=== PATIENT | female | born 1955 | race Caucasian/White ===

== ENCOUNTER 2016-07-10 11:04 | Emergency (ER) | payer BC ==
[2016-07-10 11:55] LABS: HEMOGLOBIN 11.5 gm/dl (12.3-15.3); RED BLOOD COUNT 4.46 M/UL (4.00-5.10); WHITE BLOOD COUNT 4.8 K/UL (4.5-11.0)
[2016-07-10 12:13] LABS: BUN/CREATININE RATIO 30 (0-10)
== END 2016-07-10 16:34 | disposition home or self-care (01) ==
LOC: ER1 11:04
PROVIDERS: Emergency Medicine
DX: R10.31 Right lower quadrant pain (principal); D73.89 Other diseases of spleen; I10 Essential (primary) hypertension; C73 Malignant neoplasm of thyroid gland; Z88.2 Allergy status to sulfonamides; Z90.710 Acquired absence of both cervix and uterus; Z88.6 Allergy status to analgesic agent; Z90.89 Acquired absence of other organs
CPT/HCPCS: 36415; 80053; 81001; 83690; 85025; 96361; 96374; 99284; J2405; J7050; Q9962

== ENCOUNTER → 2016-09-05 | Outpatient (CLI) | payer BC | LOC: US 09:35 | DX: R10.11 Right upper quadrant pain (principal); Z90.49 Acquired absence of other specified parts of digestive tract | CPT/HCPCS: 76705 ==

== ENCOUNTER → 2020-07-02 | Outpatient (CLI) | payer BC ==
[~2020-07-02] MED LIST: BENICAR20 MG PO; NEXIUM40 MG PO; OMNICEF 300 MG300 MG PO; SYNTHROID150 MCG PO; ZITHROMAX250 MG PO
== END ==
LOC: CT 11:51
DX: R10.13 Epigastric pain (principal); R11.2 Nausea with vomiting, unspecified; I70.0 Atherosclerosis of aorta; Z96.643 Presence of artificial hip joint, bilateral
CPT/HCPCS: 36415; 82565; Q9967